=== PATIENT | female | born 1985 | race American Indian/Alaskan Native ===

== ENCOUNTER 2019-07-15 00:36 | Emergency (ER) | payer SELFPAY ==
[2019-07-15 01:27] VITALS: BP 133/84
--- NOTE | 2019-07-15 02:44 | Emergency Department Report ---
Suture/Staple Removal - HPI Chief Complaint: Laceration/Recheck/Suture Stated Complaint: STITCH REMOVAL Time Seen by Provider: 07/15/19 02:35 When Sutures or Kaycee Placed: >14 Days Ago (last sutures placed at another location little 14 days ago presents for suture removal there is some overgrowth of some of the sutures) Wound Location: right knee sutures. no discharge. ED Review of Systems ROS: Stated complaint: STITCH REMOVAL Other details as noted in HPI Comment: All other systems reviewed and negative ED Past Medical Hx - Past Medical History Previous Medical History?: Yes Hx Hypertension: Yes Hx Diabetes: Yes - Surgical History Past Surgical History?: No - Social History Smoking Status: Current Every Day Smoker Suture Removal Exam - Exam General: Vital signs noted. No distress. Alert and acting appropriately. Wound: Yes Tenderness (there is overgrowth on 3 of 9 sutures), No Drainage, No Pus Other Systems: All other systems reviewed and are unremarkable. ED Course Vital Signs 07/15/19 00:43 Temperature 98.1 F Pulse Rate 91 H Respiratory 18 Rate Blood Pressure 133/84 O2 Sat by Pulse 99 Oximetry - Procedure Description Procedures done: Sutures removed from the right knee with scissors and mosquito pickups Critical care attestation.: If time is entered above; I have spent that time in minutes in the direct care of this critically ill patient, excluding procedure time. ED Disposition Clinical Impression: Visit for suture removal Disposition: [id number]-01 TO HOME OR SELFCARE Is pt being admited?: No Does the pt Need Aspirin: No Condition: Stable Instructions: Suture Removal (ED) Referrals: [facility] [Provider Group] - 3-5 Days
== END 2019-07-15 03:41 | disposition home or self-care (01) ==
LOC: ED 00:36
DX: S81.011D Laceration without foreign body, right knee, subsequent encounter (principal); I10 Essential (primary) hypertension; E11.9 Type 2 diabetes mellitus without complications; F17.200 Nicotine dependence, unspecified, uncomplicated; W27.2XXD Contact with scissors, subsequent encounter